=== PATIENT | female | born 1965 | race Caucasian/White ===

== ENCOUNTER 2018-01-06 14:24 | Observation (INO) | payer BC ==
--- NOTE | 2018-01-06 14:42 | DR.H&P ---
H&P - History & Physical for Day of: H&P Date: 01/06/18 - Chief Complaint Chief Complaint: Abdominal pain - History of Present Illness History of Present Illness: The patient is a 52yo female who presented to the office setting with complaints of left lower quadrant abdominal pain. The patient does have a past medical history of kidney stones and states that the pain she is having today is consistent with the kidney stones she has had in the past. The patient went to the ED in [place], [place] earlier this morning. The patient was given Toradol and Flomax. The patient continued to have pain and presented to the office setting where she has been given 75mg Demerol and 2 liters of IVF. The patient continues to experience pain with minimal urine output. Rates pain a 10 on 0-10 pain scale. The patient will be admitted for further evaluation and management. - Past Medical History Past Medical History: Migraines, Hypothyroidism, Kidney Stones - Past Surgical History Surgical History: Unknown - Family History Family Medical History: Cancer - Social History Does patient currently use any type of tobacco product: No Alcohol Use: None - Review of Systems Constitutional: Sweats Eyes: No Symptoms Reported ENT: No Symptoms Reported Respiratory: No Symptoms Reported Cardiovascular: No Symptoms Reported Gastrointestinal: See HPI, Nausea, Vomiting, Abdominal Pain Genitourinary: See HPI, Dysuria, Frequency Musculoskeletal: No Symptoms Reported Skin: No Symptoms Reported Neurological: No Symptoms Reported Oriented: Normal Eyes: Normal Ear: Normal Nose: Normal Throat: Normal Respiratory: Clear Throughout Cardiovascular: Normal : Dysuria, Frequency Auscultation: Bowel Sounds: Normal Palpation: Normal Tenderness: LLQ Skin: Normal Musculoskeletal: Normal Psychiatric: Normal Mood Description: Calm Affect: Normal Speech Pattern: Clear - Assessment/Plan (1) Intractable abdominal pain Status: Acute Plan: See Chart for further orders (2) Renal calculi Status: Acute Plan: See chart for further orders
[2018-01-06] MEDS: TORADOL 15 MG VIAL IVP SCH ×2 (16:03→22:04)
[2018-01-06] MEDS: NS 1000 ML 1,000 ML IV SCH ×2 (16:13→23:22)
[2018-01-06 16:18] LABS: BASOPHILS # (AUTO) 0.1 X10^3/uL (0.0-0.1); BASOPHILS % (AUTO) 0.6 % (0.2-1.0); EOSINOPHILS # (AUTO) 0.1 x10^3/uL (0.0-0.2); EOSINOPHILS % (AUTO) 0.4 % (0.9-2.9); HEMATOCRIT 35.5 % (36.0-47.0); HEMOGLOBIN 11.4 g/dL (12.0-16.0); LYMPHOCYTES # (AUTO) 1.8 X10^3/uL (1.3-2.9); LYMPHOCYTES % (AUTO) 13.3 % (21.0-51.0); MEAN CORPUSCULAR HEMOGLOBIN 24.2 pg (27.0-34.0); MEAN CORPUSCULAR HGB CONC 32.3 g/dL (33.0-35.0); MEAN CORPUSCULAR VOLUME 75.1 fL (80.0-100.0); MEAN PLATELET VOLUME 7.5 fL (7.4-11.0); MONOCYTES # (AUTO) 0.7 x10^3/uL (0.3-0.8); MONOCYTES % (AUTO) 5.3 % (0.0-13.0); NEUTROPHILS # (AUTO) 11.1 x10^3/uL (2.2-4.8); NEUTROPHILS % (AUTO) 80.4 % (42.0-75.0); PLATELET COUNT 375 X10^3/uL (150.0-450.0); RED BLOOD COUNT 4.73 X10^6/uL (3.5-5.4); WHITE BLOOD COUNT 13.8 X10^3/uL (3.6-10.0)
[2018-01-06 16:36] LABS: ALANINE AMINOTRANSFERASE 27 Units/L (12-78); ALBUMIN 3.6 g/dL (3.4-5.0); ALKALINE PHOSPHATASE 63 Units/L (46-116); ASPARTATE AMINO TRANSFERASE 20 Units/L (15-37); BLOOD UREA NITROGEN 25 mg/dL (7-18); CALCIUM 8.4 mg/dL (8.5-10.1); CARBON DIOXIDE 24.4 mmol/L (21-32); CHLORIDE 106 mmol/L (98-107); CREATININE 1.43 mg/dL (0.55-1.02); SODIUM 140 mmol/L (136-145); TOTAL PROTEIN 7.7 g/dL (6.4-8.2); eGFR BLACK RACES 50 (>60); eGFR NON BLACK RACES 41 (>60)
[2018-01-06 16:41] LABS: ANISOCYTOSIS 1+; HYPOCHROMASIA 1+; PLATELET MORPHOLOGY COMMENT NORMAL (NORMAL)
[2018-01-06 17:01] VITALS: BMI 32.5
[2018-01-06] MEDS: DILAUDID INJ IVP PRN ×2 (17:26→23:22)
[2018-01-06 17:32] LABS: BILIRUBIN,URINE NEGATIVE (NEGATIVE); BLOOD/HEMOGLOBIN,URINE 1+ (NEGATIVE); GLUCOSE, URINE NEGATIVE (NEGATIVE); KETONES,URINE 1+ (NEGATIVE); LEUKOCYTE ESTERASE ,URINE NEGATIVE (NEGATIVE); NITRITES,URINE NEGATIVE (NEGATIVE); PROTEIN,URINE NEGATIVE (NEGATIVE); UROBILINOGEN,URINE NORMAL (NORMAL)
[2018-01-06 17:37] LABS: APPEARANCE,URINE HAZY (CLEAR); BACTERIA,URINE NEGATIVE /HPF (NEGATIVE); COLOR,URINE YELLOW (YELLOW); RBC,URINE 0-2 /HPF (NEGATIVE); SQUAMOUS EPITHELIAL CELL,UR NEGATIVE /HPF (NEGATIVE)
[2018-01-06] MEDS: ZOFRAN INJ 4 MG VIAL IVP PRN (18:25)
--- NOTE | 2018-01-06 18:45 | CT ---
HISTORY: Left flank pain, history of kidney stones. Prior history of lithotripsy, cholecystectomy and tubal ligation Study: CT abdomen and pelvis without IV or oral contrast Comparison: No priors Technique: Multiple axial images of the abdomen and pelvis were obtained from the lung bases to the pubic symphy sis without the administration of IV or oral contrast. Coronal and sagittal images are also reviewed . Dose reduction techniques utilized automatic exposure control. Findings: The visualized portions of the lung bases are unremarkable. The liver, spleen, pancreas, and adrenal glands are unremarkable in their CT appearance. Gallbladder surgically absent. There is a nonobstruc ting stone present involving the lower pole of the right kidney measuring about 2.4 mm. Very mild per inephric stranding is present on the left with left-sided hydronephrosis and hydroureter. A 3.[address] one is present involving the urinary bladder on the left side. This has the appearance of recently be ing passed.. No significant mesenteric lymphadenopathy or stranding can be observed. No free fluid or free air is seen within the abdomen. No bowel wall thickening or bowel dilatation is present. Th ere is uncomplicated appearing descending and sigmoid colon diverticulosis. No diverticulitis, absces s or fluid is seen.. The uterus and adnexal structures are normal. Anterior wedge compression deform ities present at the T8 level. The age of this is uncertain. Lumbar vertebrae appear intact. IMPRESSION: 3.4 mm stone present in the urinary bladder region on the left side. This has the appearance of recen tly being passed. Left-sided hydronephrosis and hydroureter are present with mild perinephric strandi ng on the left. 2.4 mm nonobstructing stone in the lower pole of the right kidney. Uncomplicated appearing descending and sigmoid colon diverticulosis. No diverticulitis, abscess or fl uid is seen. Reported By:
[2018-01-06] MEDS: FLOMAX PO SCH (21:23)
[2018-01-06] MEDS: PROTONIX TAB 40 MG PO SCH (22:05)
[2018-01-07] MEDS: TORADOL 15 MG VIAL IVP SCH (04:50)
[2018-01-07] MEDS: DILAUDID INJ IVP PRN ×2 (05:57→18:15)
[2018-01-07 06:07] LABS: BASOPHILS # (AUTO) 0.1 X10^3/uL (0.0-0.1); BASOPHILS % (AUTO) 1.2 % (0.2-1.0); EOSINOPHILS # (AUTO) 0.3 x10^3/uL (0.0-0.2); EOSINOPHILS % (AUTO) 2.4 % (0.9-2.9); HEMATOCRIT 30.6 % (36.0-47.0); LYMPHOCYTES # (AUTO) 2.6 X10^3/uL (1.3-2.9); LYMPHOCYTES % (AUTO) 23.8 % (21.0-51.0); MEAN CORPUSCULAR HEMOGLOBIN 24.6 pg (27.0-34.0); MEAN CORPUSCULAR HGB CONC 32.7 g/dL (33.0-35.0); MEAN CORPUSCULAR VOLUME 75.3 fL (80.0-100.0); MONOCYTES # (AUTO) 0.7 x10^3/uL (0.3-0.8); MONOCYTES % (AUTO) 6.8 % (0.0-13.0); NEUTROPHILS # (AUTO) 7.1 x10^3/uL (2.2-4.8); NEUTROPHILS % (AUTO) 65.8 % (42.0-75.0); PLATELET COUNT 286 X10^3/uL (150.0-450.0); RED BLOOD COUNT 4.06 X10^6/uL (3.5-5.4); RED CELL DISTRIBUTION WIDTH 17.4 % (11.6-16.5); WHITE BLOOD COUNT 10.8 X10^3/uL (3.6-10.0)
[2018-01-07 06:27] LABS: ALANINE AMINOTRANSFERASE 20 Units/L (12-78); ALBUMIN 2.8 g/dL (3.4-5.0); ALKALINE PHOSPHATASE 51 Units/L (46-116); ASPARTATE AMINO TRANSFERASE 16 Units/L (15-37); BLOOD UREA NITROGEN 22 mg/dL (7-18); CALCIUM 7.7 mg/dL (8.5-10.1); CARBON DIOXIDE 22.4 mmol/L (21-32); CHLORIDE 109 mmol/L (98-107); COR CA(FOR HYPOALB) 8.7 mg/dL (8.5-10.1); CREATININE 1.61 mg/dL (0.55-1.02); SODIUM 141 mmol/L (136-145); TOTAL PROTEIN 6.3 g/dL (6.4-8.2); eGFR BLACK RACES 44 (>60); eGFR NON BLACK RACES 36 (>60)
[2018-01-07 06:28] LABS: HYPOCHROMASIA SLIGHT; MICROCYTOSIS SLIGHT; PLATELET MORPHOLOGY COMMENT NORMAL (NORMAL)
[2018-01-07] MEDS: PROTONIX TAB 40 MG PO SCH (08:00)
[2018-01-07] MEDS: NS 1000 ML 1,000 ML IV SCH ×3 (08:00→20:25)
[2018-01-07] MEDS: FLOMAX PO SCH ×2 (08:00→20:24)
[2018-01-07] MEDS ORDERED: DILAUDID INJ ONE (10:25)
[2018-01-07] MEDS ORDERED: DILAUDID INJ IVP PRN (10:27)
[2018-01-07] MEDS: ZOFRAN INJ 4 MG VIAL IVP PRN ×2 (11:57→20:33)
[2018-01-07] MEDS ORDERED: DILAUDID INJ IVP ONE (22:01)
[2018-01-08] MEDS: NS 1000 ML 1,000 ML IV SCH ×2 (00:50→06:23)
[2018-01-08] MEDS ORDERED: TYLENOL 325 MG TAB PO PRN (06:03)
[2018-01-08 06:09] LABS: BASOPHILS # (AUTO) 0.1 X10^3/uL (0.0-0.1); BASOPHILS % (AUTO) 1.1 % (0.2-1.0); EOSINOPHILS # (AUTO) 0.3 x10^3/uL (0.0-0.2); EOSINOPHILS % (AUTO) 2.6 % (0.9-2.9); HEMATOCRIT 31.6 % (36.0-47.0); HEMOGLOBIN 10.3 g/dL (12.0-16.0); LYMPHOCYTES # (AUTO) 2.1 X10^3/uL (1.3-2.9); LYMPHOCYTES % (AUTO) 21.1 % (21.0-51.0); MEAN CORPUSCULAR HEMOGLOBIN 24.4 pg (27.0-34.0); MEAN CORPUSCULAR HGB CONC 32.6 g/dL (33.0-35.0); MONOCYTES # (AUTO) 0.6 x10^3/uL (0.3-0.8); MONOCYTES % (AUTO) 5.6 % (0.0-13.0); NEUTROPHILS # (AUTO) 6.9 x10^3/uL (2.2-4.8); NEUTROPHILS % (AUTO) 69.6 % (42.0-75.0); PLATELET COUNT 289 X10^3/uL (150.0-450.0); RED BLOOD COUNT 4.22 X10^6/uL (3.5-5.4); RED CELL DISTRIBUTION WIDTH 17.3 % (11.6-16.5); WHITE BLOOD COUNT 9.9 X10^3/uL (3.6-10.0)
[2018-01-08 06:19] LABS: ALANINE AMINOTRANSFERASE 21 Units/L (12-78); ALBUMIN 2.9 g/dL (3.4-5.0); ALKALINE PHOSPHATASE 55 Units/L (46-116); ASPARTATE AMINO TRANSFERASE 16 Units/L (15-37); BLOOD UREA NITROGEN 14 mg/dL (7-18); CALCIUM 8.1 mg/dL (8.5-10.1); CARBON DIOXIDE 23.4 mmol/L (21-32); CHLORIDE 110 mmol/L (98-107); SODIUM 142 mmol/L (136-145); TOTAL PROTEIN 6.8 g/dL (6.4-8.2); eGFR BLACK RACES > 60 (>60); eGFR NON BLACK RACES > 60 (>60)
[2018-01-08 06:22] LABS: PLATELET MORPHOLOGY COMMENT NORMAL (NORMAL)
[2018-01-08 06:23] LABS: HYPOCHROMASIA SLIGHT
[2018-01-08 06:24] LABS: ANISOCYTOSIS 1+; MICROCYTOSIS SLIGHT
[2018-01-08] MEDS: PROTONIX TAB 40 MG PO SCH (08:52)
[2018-01-08] MEDS: FLOMAX PO SCH (08:52)
--- NOTE | 2018-01-08 11:33 | RAD ---
Examination: KUB History: Left flank pain, stones Comparison reference abdomen CT, 01/06/2018 Findings: Normal intestinal gas pattern. Small pelvic calcifications are typical for vascular origin. There is nonspecific soft tissue fullness in the left para lumbar area. No ascites is demonstrated. Impression: No definite renal or ureteral stones identified. Pelvic calcifications compatible with va scular phleboliths; a small distal ureteral or bladder calculus cannot be ruled out. Left paraspinal soft tissue prominence is nonspecific but may represent the recently described hydronephrosis. Reported By:
[2018-01-08 12:11] VITALS: BP 125/75
== END 2018-01-08 12:35 | disposition home or self-care (01) | DRG 392 ==
LOC: ICU 14:24
PROVIDERS: ADMIT Internal Medicine; ATTEND Internal Medicine
DX: R10.84 Generalized abdominal pain (principal); N13.39 Other hydronephrosis; N13.4 Hydroureter; R10.32 Left lower quadrant pain; E03.8 Other specified hypothyroidism; N20.0 Calculus of kidney; K52.89 Other specified noninfective gastroenteritis and colitis
CPT/HCPCS: 36415; 74018; 74176; 80053; 81001; 82365; 85025; A4216; G0378; J1170; J2405